=== PATIENT | male | born 1995 | race American Indian/Alaskan Native ===

== ENCOUNTER 2017-11-21 20:20 | Emergency (ER) | payer SELFPAY ==
[2017-11-21 20:38] VITALS: BP 102/69
[2017-11-22] MEDS ORDERED: MOTRIN ONE (00:54)
[2017-11-22] MEDS ORDERED: MOTRIN PO ONE (00:54)
[2017-11-22] MEDS ORDERED: BACTRIM DS PO ONE (01:51)
--- NOTE | 2017-11-22 02:31 | Ultrasound Report ---
FINAL REPORT EXAM: US EXTREMITY NONVASCULAR LT HISTORY: lft inner groin pain TECHNIQUE: Targeted sonographic imaging was obtained of the inner left groin area. A total of 11 images were obtained. FINDINGS: There is a complex cyst measuring 2.5 cm x 0.7 cm x 2.5 cm in the subcutaneous tissues. There is no blood flow within the cyst. This corresponds to the area of discomfort. IMPRESSION: Complex cyst in the inter groin as described with no blood flow. This may represent an infected sebaceous cyst.
--- NOTE | 2017-11-22 02:53 | Emergency Department Report ---
ED Male HPI - General Chief complaint: Skin/Abscess/Foreign Body Stated complaint: ABCESS IN GROIN Time Seen by Provider: 11/22/17 01:21 Source: patient Mode of arrival: Ambulatory Limitations: No Limitations - History of Present Illness Initial comments: Patient is a 22-year-old male who presents to ED complaining of pain to the left groin area 3 days. Patient states he usually gets pain in his groin area that usually goes away after about a week or so. Patient states this time the pain is getting worse and has some swelling to his left groin area. Patient denies dysuria, fever, testicular pain or swelling, bleeding, penile lesions or any abrasions or lesions MD Complaint: groin pain (left) -: days(s) - Related Data Previous Rx's Medication Instructions Recorded Last Taken Type Ibuprofen [Motrin] 800 mg PO Q8HR PRN #40 tablet 11/22/17 Unknown Rx Sulfamethoxazole/Trimethoprim 1 each PO BID #20 tablet 11/22/17 Unknown Rx [Bactrim DS TAB] Allergies Allergy/AdvReac Type Severity Reaction Status Date / Time No Known Allergies Allergy Verified 11/22/17 01:17 ED Review of Systems ROS: Stated complaint: ABCESS IN GROIN Other details as noted in HPI Constitutional: denies: chills, fever Eyes: denies: eye pain, eye discharge, vision change ENT: denies: ear pain, throat pain Respiratory: denies: cough, shortness of breath, wheezing Cardiovascular: denies: chest pain, palpitations Endocrine: no symptoms reported Gastrointestinal: denies: abdominal pain, nausea, vomiting, diarrhea Genitourinary: denies: urgency, dysuria, frequency, hematuria, discharge, testicular pain, testicular mass Musculoskeletal: denies: back pain, joint swelling, arthralgia Skin: denies: rash, lesions, pruritus Neurological: denies: headache, weakness, numbness, paresthesias, confusion Psychiatric: denies: anxiety, depression Hematological/Lymphatic: denies: easy bleeding, easy bruising ED Past Medical Hx - Past Medical History Previous Medical History?: No - Surgical History Past Surgical History?: No - Social History Smoking Status: Current Every Day Smoker Substance Use Type: Alcohol, Marijuana - Medications Home Medications: Home Medications Medication Instructions Recorded Confirmed Last Taken Type Ibuprofen [Motrin] 800 mg PO Q8HR PRN #40 tablet 11/22/17 Unknown Rx Sulfamethoxazole/Trimethoprim 1 each PO BID #20 tablet 11/22/17 Unknown Rx [Bactrim DS TAB] ED Physical Exam - General Limitations: No Limitations General appearance: alert, in no apparent distress - Head Head exam: Present: atraumatic, normocephalic - Eye Eye exam: Present: normal appearance - ENT ENT exam: Present: mucous membranes moist - Neck Neck exam: Present: normal inspection - Respiratory Respiratory exam: Present: normal lung sounds bilaterally. Absent: respiratory distress - Cardiovascular Cardiovascular Exam: Present: regular rate, normal rhythm. Absent: systolic murmur, diastolic murmur, rubs, gallop - GI/Abdominal GI/Abdominal exam: Present: soft, normal bowel sounds - Rectal Rectal exam: Present: normal inspection. Absent: hemorrhoids - exam: Present: normal inspection, other (left groin tenderness, non erythematous, non swelling). Absent: testicular tenderness, urethral discharge , scrotal swelling External exam: Present: normal external exam. Absent: erythema, swelling, lesions, lacerations, bleeding - Extremities Exam Extremities exam: Present: normal inspection, full ROM - Back Exam Back exam: Present: normal inspection - Neurological Exam Neurological exam: Present: alert, oriented X3 - Psychiatric Psychiatric exam: Present: normal affect, normal mood - Skin Skin exam: Present: warm, dry, intact, normal color. Absent: rash ED Course Vital Signs 11/21/17 20:36 Temperature 98.7 F Pulse Rate 80 Respiratory 18 Rate Blood Pressure 102/69 O2 Sat by Pulse 99 Oximetry ED Medical Decision Making - Radiology Data Radiology results: report reviewed Ultrasound impression: Infected sebaceous cyst the left groin - Medical Decision Making 22-year-old male presents for a left inner suppression as groin cyst. ED course: Patient received 1 dose of Bactrim and Motrin for pain. Ultrasound obtained. Ultrasound shows complex cyst of the sebaceous gland Discloses findings with the patient. I discussed with the patient he'll go home on antibiotics and pain medication I discussed the patient to apply heat compressions to groin region 3 times a day. I discussed with the patient is symptoms worsen, return to ED. no fever or signs of distress in ED stay I discussed the patient will follow up with his primary care physician or as referred. Vital signs are stable patient is in no acute respiratory distress. Critical care attestation.: If time is entered above; I have spent that time in minutes in the direct care of this critically ill patient, excluding procedure time. ED Disposition Clinical Impression: Infected sebaceous cyst, Groin cyst Disposition: TO HOME OR SELFCARE Is pt being admited?: No Does the pt Need Aspirin: No Condition: Stable Instructions: Lymphadenopathy (ED), Groin Pain (ED) Additional Instructions: Make sure to follow up with the primary care physician as discussed. Take all your medications as you've been prescribed. If you have any worsening symptoms or develop new symptoms please return to ED immediately. Prescriptions: Ibuprofen [Motrin] 800 mg PO Q8HR PRN #40 tablet PRN Reason: Pain Sulfamethoxazole/Trimethoprim [Bactrim DS TAB] 1 each PO BID #20 tablet Referrals: PRIMARY CARE, [Primary Care Provider] - 3-5 Days [facility] [Outside] - 3-5 Days [facility] [Outside] - 3-5 Days [facility] [Outside] - 3-5 Days Forms: Accompanied Note, Work/School Release Form(ED) Time of Disposition: 02:57
== END 2017-11-22 03:10 | disposition home or self-care (01) ==
LOC: ED 20:20
DX: L72.3 Sebaceous cyst (principal); F17.200 Nicotine dependence, unspecified, uncomplicated
CPT/HCPCS: 99283